=== PATIENT | male | born 1970 | race Caucasian/White ===

== ENCOUNTER 2023-01-17 08:31 | Emergency (ER) | payer OTHER ==
[~2023-01-17] VITALS: Ht 180.3 cm; Wt 111.1 kg
[~2023-01-17 08:31] MED LIST: ALEVE220 M1 PO; CEFADROXIL500 MG PO; KETO10TA2 PO; NORFLEX100MG PO; PERCOCET 5/3251 TAB PO
== END 2023-01-17 13:01 | disposition home or self-care (01) ==
LOC: ER 08:31
DX: M51.26 Other intervertebral disc displacement, lumbar region (principal)